=== PATIENT | female | born 1960 | race Two or more races ===

== ENCOUNTER 2024-08-11 08:31 | Emergency (ER) | payer OTHER ==
[~2024-08-11] VITALS: Ht 165.1 cm; Wt 71.2 kg
[~2024-08-11 08:31] MED LIST: DIOVAN40 MG
[2024-08-11] MEDS ORDERED: ROSUVASTATIN CAL5 MG PO (08:39)
[2024-08-11] MEDS ORDERED: COZAAR100 MG PO (08:39)
[2024-08-11] MEDS ORDERED: LEVALBUTEROL HCL 0.63 MG/3 ML SOLUTION IH SCH (09:06)
[2024-08-11] MEDS ORDERED: FAMOtidine 10 MG/ML (4ML VIAL) IV ONE (09:15)
[2024-08-11] MEDS ORDERED: 0.9 % SODIUM CHLORIDE 1,000 ML IV ONE (09:15)
[2024-08-11] MEDS ORDERED: CEFTRIAXONE SODIUM 1,000 MG VIAL IV ONE (09:15)
[2024-08-11] MEDS ORDERED: MAGNESIUM SULFATE IN WATER 2 GM/50 ML PIGGYBAG IV ONE (09:15)
[2024-08-11] MEDS ORDERED: METHYLPREDNISOLONE SOD SUCC 40 MG VIAL IV ONE (09:15)
[2024-08-11] MEDS ORDERED: IPRATROPIUM BROMIDE 0.5 MG/2.5 ML AMPUL.NEB IH ONE (09:15)
[2024-08-11 10:23] LABS: HEMATOCRIT 43.1 % (36.0-45.00); HEMOGLOBIN 14.7 g/dL (12.0-15.00); MEAN CELL VOLUME 89.6 fL (80.00-100.00); MEAN CORPUSCULAR HEMOGLOBIN 30.6 pg (27.00-32.0); MEAN CORPUSCULAR HGB CONC 34.1 g/dl (32.0-36.0); PLATELET COUNT 245 K/uL (150-450); RED BLOOD COUNT 4.81 M/uL (4.00-6.00); RED CELL DISTRIBUTION WIDTH 14.3 % (11.5-14.5)
[2024-08-11 11:40] LABS: ALBUMIN 4.3 gm/dL (3.4-5.0); BILIRUBIN TOTAL 0.88 mg/dL (0.3-1.2); CALCIUM 9.8 mg/dL (8.5-10.1); CREATININE SERUM 0.89 mg/dL (0.55-1.02); GFR 63.85; GLOBULINA 3.3 G/DL (2.4-3.5); POTASSIUM 4.4 mEq/L (3.5-5.1); TOTAL PROTEIN 7.6 gm/dL (6.4-8.2)
[2024-08-11] MEDS ORDERED: PEPCID AC20 MG PO (13:36)
[2024-08-11] MEDS ORDERED: PROAIR RESPICL90 MCG IH (13:36)
[2024-08-11] MEDS ORDERED: BENZONATATE200 M1 PO (13:36)
[2024-08-11] MEDS ORDERED: LEVALBUTER0.63 MG/3 IH (13:36)
[2024-08-11] MEDS ORDERED: MEDROLPACK PO (13:36)
[2024-08-11] MEDS ORDERED: MONTELUKAST SODI4 M1 PO (13:42)
[2024-08-11 14:32] LABS: ABG PH 7.401 (7.35-7.45); ABG PO2 89.4 mmHg (80-100); ABG pCO2 40.5 mmHg (35-45); BASE EXCESS -0.2 mmol/l; BICARBONATE 24.6 mmol/l (23-25); SaO2 96.8 %; Tco2 25.8 mmol/l
[2024-08-11 14:33] LABS: allen test SATISFACTORY; o2 21 %; puncture site RADIAL RIGHT
== END 2024-08-11 14:07 | disposition home or self-care (01) ==
LOC: ER 08:33
PROVIDERS: General Practice
DX: J45.901 Unspecified asthma with (acute) exacerbation (principal); R05.9 Cough, unspecified; Z20.822 Contact with and (suspected) exposure to COVID-19; I10 Essential (primary) hypertension